=== PATIENT | male | born 1985 | race Two or more races ===

== ENCOUNTER 2018-02-04 09:09 | Emergency (ER) | payer OTHER ==
[~2018-02-04] VITALS: Ht 175.3 cm; Wt 121.6 kg
[2018-02-04] MEDS ORDERED: MEDROLPACK PO ×2 (11:48→12:23)
== END 2018-02-04 12:57 | disposition home or self-care (01) ==
LOC: ER 09:09
DX: G51.0 Bell's palsy (principal)

== ENCOUNTER 2020-12-28 17:45 | Emergency (ER) | payer OTHER ==
[~2020-12-28] VITALS: Ht 175.3 cm; Wt 127.0 kg
[~2020-12-28 17:45] MED LIST: MEDROLPACK PO
== END 2020-12-28 20:48 | disposition home or self-care (01) ==
LOC: ER 17:45
DX: S61.422A Laceration with foreign body of left hand, initial encounter (principal); W26.8XXA Contact with other sharp object(s), not elsewhere classified, initial encounter; Y93.89 Activity, other specified; Y92.69 Other specified industrial and construction area as the place of occurrence of the external cause; Y99.8 Other external cause status

== ENCOUNTER 2020-12-29 09:19 | Outpatient (CLI) | payer OTHER | END 2020-12-29 09:38 | disposition home or self-care (01) | LOC: LAB 09:19 | PROVIDERS: ATTEND Internal Medicine | DX: E66.2 Morbid (severe) obesity with alveolar hypoventilation (principal); Z82.61 Family history of arthritis; M15.0 Primary generalized (osteo)arthritis; E78.49 Other hyperlipidemia; M54.5 Low back pain; G90.8 Other disorders of autonomic nervous system; M54.2 Cervicalgia ==

== ENCOUNTER 2021-02-08 00:37 | Emergency (ER) | payer OTHER ==
[~2021-02-08] VITALS: Ht 175.3 cm; Wt 129.3 kg
[2021-02-08] MEDS ORDERED: GABAPENTIN300 M2 PO (02:08)
[2021-02-08] MEDS ORDERED: MOBIC15 MG PO ×2 (02:08→02:09)
[2021-02-08] MEDS ORDERED: PEPCID40 MG PO ×2 (02:10→02:11)
== END 2021-02-08 02:19 ==
LOC: ER 00:37
DX: M25.59 Pain in other specified joint (principal)

== ENCOUNTER 2022-10-28 17:25 | Emergency (ER) | payer OTHER ==
[~2022-10-28] VITALS: Ht 175.3 cm; Wt 116.6 kg
[~2022-10-28 17:25] MED LIST changes: +GABAPENTIN300 M2 PO; +MOBIC15 MG PO; +PEPCID40 MG PO
== END 2022-10-29 00:40 | disposition home or self-care (01) ==
LOC: ER 17:25
DX: S09.90XA Unspecified injury of head, initial encounter (principal); W19.XXXA Unspecified fall, initial encounter; Y93.9 Activity, unspecified; Y92.9 Unspecified place or not applicable; Y99.9 Unspecified external cause status; Z91.013 Allergy to seafood